=== PATIENT | female | born 1980 | race Two or more races ===

== ENCOUNTER 2016-12-16 12:47 | Emergency (ER) | payer OTHER ==
[~2016-12-16] VITALS: Ht 157.5 cm; Wt 75.5 kg
[~2016-12-16 12:47] MED LIST: [UNRECOGNIZED DRUG - REMARK]
[2016-12-16 12:51] VITALS: Ht 157.5 cm; Wt 75.5 kg
[2016-12-16] MEDS ORDERED: KETOROLAC 30 MG INJ IM STA (13:22)
[2016-12-16] MEDS ORDERED: METOCLOPRAMIDE 10 MG INJ IM ONE (13:30)
[2016-12-16] MEDS ORDERED: DIPHENHYDRAMINE 50 MG INJ IM ONE (13:30)
[2016-12-16] MEDS ORDERED: IBUP-1542 PO (14:16)
[2016-12-16] MEDS ORDERED: SODI126M NASAL (14:17)
--- NOTE | 2016-12-16 14:32 | ERD ---
ER Documentation Chief Complaint Date/Time DATE: 12/16/16 TIME: 14:20 Chief Complaint headache x 1 week, finished antibiotics for sinusitis HPI 36-year-old female complaining of headache 1 week. Headaches mostly in the frontal region. She has photophobia but no vision disturbances. She has a runny nose with clear discharge. Patient stated that she was diagnosed with sinusitis, and just finished taking amoxicillin for it. Denies fever or chills. Denies nausea or vomiting. Denies recent head injuries. Denies balance issues. Denies one-sided numbness or weakness. ROS All systems reviewed and are negative except as per history of present illness. Medications Home Meds Active Scripts Sodium Chloride (Saline Nasal Mist) 126 Ml Mist, 2 SPRAY NASAL Q2H Y for NASAL CONGESTION, #1 BOTTLE Prov:ASHLEY ABREU. PLANT OPERATIONS ENGINEER 12/16/16 Ibuprofen* (Motrin*) 600 Mg Tab, 600 MG PO Q6H Y for PAIN AND OR ELEVATED TEMP, #30 TAB Prov:ASHLEY ABREU. PLANT OPERATIONS ENGINEER 12/16/16 Reported Medications [Diet Pills] No Conflict Check 05/24/10 Allergies Allergies: Coded Allergies: No Known Allergies (Verified Allergy, Mild, 05/24/10) No Known Drug Allergy (Verified Allergy, Mild, 04/18/10) PMhx/Soc History of Surgery: Yes (C SECTION) Anesthesia Reaction: No Hx Neurological Disorder: No Hx Respiratory Disorders: No Hx Cardiac Disorders: No Hx Psychiatric Problems: No Hx Miscellaneous Medical Probl: No Hx Alcohol Use: No Hx Substance Use: No Hx Tobacco Use: Yes Smoking Status: Never smoker Physical Exam Vitals Vital Signs Date Time Temp Pulse Resp B/P Pulse Ox O2 Delivery O2 Flow Rate FiO2 12/16/16 12:51 97.8 77 18 177/90 99 Physical Exam General impression: Well-developed, well-nourished. Alert, oriented, in no acute distress Head: Normocephalic, atraumatic. Eyes: PERRL, EOM normal. Conjunctiva not injected. ENT: Nasal mucosa erythematous and swollen with clear nasal discharge. Oral mucosa and oropharynx are normal. Neck: Supple, nontender. No lymphadenopathy. No nuchal rigidity. Bilateral sternocleidomastoid and upper trapezius muscle spasm noted. Respiration: Normal respiratory effort. Lungs clear to auscultate bilaterally. No wheezes, rales or rhonchi. Cardiovascular: Regular rate and rhythm. No murmurs or extra heart sounds. Neuro: Mental status normal, speech normal. VANSTONE MACHINE OPERATOR II-XII intact. Normal sensation and strength in all 4 extremities. No focal weakness noted. Skin: Normal turgor. No rash or lesions. Psych: Normal mood and affect. Results 24 hrs Current Medications Medications (Trade) Dose Ordered Sig/Estefanía Route PRN Reason Start Time Stop Time Status Last Admin Dose Admin Ketorolac Tromethamine (Toradol) 30 mg ONCE STAT IM 12/16/16 13:22 12/16/16 13:24 DC 12/16/16 13:36 Diphenhydramine HCl (Benadryl) 50 mg ONCE ONCE IM 12/16/16 13:30 12/16/16 13:31 DC 12/16/16 13:36 Metoclopramide HCl (Reglan) 10 mg ONCE ONCE IM 12/16/16 13:30 12/16/16 13:31 DC 12/16/16 13:38 Procedures/MDM Patient was given Toradol 30 mg, Benadryl 50 mg, and Reglan 10 mg IM in the ED. After the injection, patient reports vast improvement of her headache. Likely her headaches combination of sinus headache and tension headache. I doubt intracranial etiology such as intracranial hemorrhage, brain tumor, stroke , or cerebral artery dissection. Patient appears well, stable for discharge and outpatient management. Patient advised to apply heating pad and increase her fluid intake. Medical decision making shared with patient and family. Education provided to patient and family. Patient and family expressed understanding of the plan. Medications on discharge: Ibuprofen. Follow-up: Primary care provider in 2-3 days or return to ED if worse. Departure Diagnosis: Primary Impression: Headache Headache type: tension-type Headache chronicity pattern: acute headache Intractability: not intractable Qualified Code: G44.209 - Acute non intractable tension-type headache Condition: Good Patient Instructions: Self-Care for Headaches Referrals: CATALINA MEHTA (PCP) Additional Instructions: Llame al doctor MAANA y charlene jessica ANDREW PARA DENTRO DE 2-3 RIDDLE.Dgale a la secretaria que nosotros le instruimos hacer esta andrew.Avise o llame si johnson condicin se empeora antes de la andrew. Regresa aqui si peor o no mejor. ASHLEY ABREU NP Dec 16, 2016 14:32
== END 2016-12-16 14:46 | disposition home or self-care (01) ==
LOC: FTE 12:47
DX: G44.209 Tension-type headache, unspecified, not intractable (principal); Z87.891 Personal history of nicotine dependence
CPT/HCPCS: 96372; J1200; J1885; J2765; Z7502

== ENCOUNTER 2017-02-17 13:57 | Day surgery (SDC) | payer OTHER ==
[~2017-02-17] VITALS: Ht 157.5 cm; Wt 72.3 kg
[~2017-02-17 13:57] MED LIST changes: +IBUP-1542 PO; +SODI126M NASAL
[2017-02-17 15:23] VITALS: BP 120/58; PULSE 73; RESP 16; Ht 157.5 cm; Wt 72.3 kg
[2017-02-17 15:43] VITALS: BP 120/68; PULSE 73; RESP 16
== END 2017-02-17 16:58 | disposition home or self-care (01) ==
LOC: SDS 13:57
PROVIDERS: ATTEND Otolaryngology
DX: J33.8 Other polyp of sinus (principal); Z53.9 Procedure and treatment not carried out, unspecified reason
CPT/HCPCS: 84703

== ENCOUNTER 2017-03-03 14:48 | Day surgery (SDC) | payer OTHER ==
[~2017-03-03] VITALS: Ht 157.5 cm; Wt 70.7 kg
[2017-03-03] VITALS (12 sets, daily range): BP systolic 121–136; BP diastolic 75–86; PULSE 64–76; RESP 15–21; Ht 157.5 cm; Wt 70.7 kg
[2017-03-03] MEDS ORDERED: OXYMETAZOLINE 0.05% 15 ML NAS SPRAY NASAL ONE (19:36)
[2017-03-03] MEDS ORDERED: COCAINE 4% 4 ML TOP ONE (19:36)
[2017-03-03] MEDS ORDERED: LIDOCAINE 0.5%/EPI (MDV) 50 ML INJ ONE (19:36)
[2017-03-03] MEDS ORDERED: NEOMYC/POLYMYX/BACIT 30 GM OINT ONE (19:36)
--- NOTE | 2017-03-03 20:09 | HPN ---
Date/Time of Note Date/Time of Note DATE: 03/03/17 TIME: 20:09 Interval H&P Admission Note Pt. seen H&P reviewed: No system changes CHRIS ANNA MD March 03, 2017 20:09
[2017-03-03] MEDS ORDERED: ROCURONIUM 50 MG INJ ONE (20:11)
[2017-03-03] MEDS ORDERED: LIDOCAINE 2% (SDV) 5 ML INJ ONE (20:11)
[2017-03-03] MEDS ORDERED: GLYCOPYRROLATE 0.4 MG INJ ONE ×2 (20:11→20:54)
[2017-03-03] MEDS ORDERED: NEOSTIGMINE 3 MG/3 ML SYRINGE ONE (20:11)
[2017-03-03] MEDS ORDERED: SUCCINYLCHOLINE CHLORIDE 100 MG/5 ML SYG IV ONE (20:11)
[2017-03-03] MEDS ORDERED: MEPERIDINE 100 MG INJ ONE (20:11)
[2017-03-03] MEDS ORDERED: PROPOFOL 20 ML ONE (20:11)
--- NOTE | 2017-03-03 20:20 | OPR ---
Date/Time of Note Date/Time of Note DATE: 03/03/17 TIME: 20:17 Operative Report Procedure Date: March 03, 2017 Preoperative Diagnosis Left chronic sinusitis Postoperative Diagnosis Same Operation Performed Image guided, endoscopic left maxillary, frontal, total ethmoidectomies. Surgeon: CHRIS ANNA MD Anesthesia: general Estimated Blood Loss: 10 - 50 ml's Complications: None Pt Condition Post Procedure: stable Disposition: PACU Indications Chronic left sinusitis. Operative\Procedure Findings Left sinusitis. Procedure Description Description of procedure:The patient was identified in the holding area. We had a discussion to confirm understanding of all indications risks benefits alternatives and postoperative care associated with the operation. The patient signed informed consent was taken to the operating room. The patient was laid supine on the operating room table and anesthesia was provided in the following manner: Geta The face was draped in sterile fashion and the nose was packed with 4% cocaine pledgets. The uncinate process was infiltrated with 0.5 cc of 1 % lidocaine with epinephrine on the left side. 0 endoscopy was performed of all nasal turbinates and meati. This revealed the findings described above. The procedure began on the left side under endoscopic guidance. The microdebrider was used to resect the uncinate process in an inferior to superior fashion until the area of the frontal sinus outflow tract was reached. Frontal sinusotomy: A curved curet was used to remove the bony elements of the Ager Nasi cell. Next, with a 45 camera, the frontal sinus outflow tract was explored and any abnormal mucosa was resected. Care was taken not to cause too much mucosal disruption in this area in order to avoid scarring and stenosis. Balloon dilation of the outflow tract was performed. The tract was patent without polyp or obstructive pathology. Maxillary antrostomy: Once the frontal sinus was addressed, the maxillary sinus ostium was identified and entered with the microdebrider. It was widened anteriorly and inferiorly to complete the maxillary antrostomy. No intrasinus mass or polyp was seen. Ethmoidectomy: Next, the zero degree endoscope was again used to visualize the middle meatus. Anterior and posterior ethmoid air cells were resected in an inferior to superior fashion sparing the lamina papyracea and the skull base. All excess mucosa and polypoid tissue were removed with an upbiting forceps. At this point, all bony fragments were removed and a large Nasopore was placed into the ethmoidectomy defect. The patient was awakened, extubated and taken to the PACU in stable condition. Complications: None. CHRIS ANNA MD March 03, 2017 20:20
[2017-03-03] MEDS ORDERED: METOCLOPRAMIDE 10 MG INJ ONE (20:31)
[2017-03-03] MEDS ORDERED: ONDANSETRON 4 MG INJ ONE (20:31)
[2017-03-03] MEDS ORDERED: CEFAZOLIN 1 GM INJ ONE (20:31)
[2017-03-03] MEDS ORDERED: LABETALOL HCL 20MG INJ ONE (20:32)
[2017-03-03] MEDS ORDERED: CLINDAMYCIN 900 MG/D5W (PMX) 50 ML IVPB ONE (20:46)
[2017-03-03] MEDS ORDERED: MEPERIDINE 25 MG INJ IV PRN (21:00)
[2017-03-03] MEDS ORDERED: FENTAnyl 50 MCG/ML VIAL IV PRN ×2 (21:00)
[2017-03-03] MEDS ORDERED: METOCLOPRAMIDE 10 MG INJ IV PRN (21:00)
[2017-03-03] MEDS ORDERED: ONDANSETRON 4 MG INJ IV PRN (21:00)
[2017-03-03] MEDS ORDERED: morphine (1 MG/ML) 10ML SYRINGE IV PRN ×2 (21:00)
[2017-03-03] MEDS ORDERED: MIDAZOLAM 1 MG/ML 2 ML INJ IV PRN (21:00)
[2017-03-03] MEDS ORDERED: HYDROmorphONE (0.2 MG/ML) 10ML SYG IV PRN ×2 (21:00)
[2017-03-03] MEDS ORDERED: DIPHENHYDRAMINE 50 MG INJ IV PRN (21:00)
[2017-03-03] MEDS ORDERED: HYDROCODONE/APAP (5/325) TAB PO ONE (22:00)
== END 2017-03-03 22:21 | disposition home or self-care (01) ==
LOC: SDS 14:48
PROVIDERS: ATTEND Otolaryngology
DX: J32.9 Chronic sinusitis, unspecified (principal)
CPT/HCPCS: 31255; 31256; 31276; J0690; J2175; J2405; J2710; J2765; J7999; Z7512; Z7610

== ENCOUNTER 2017-06-28 18:17 | Emergency (ER) | payer OTHER ==
[~2017-06-28] VITALS: Ht 157.5 cm; Wt 73.0 kg
[2017-06-28 18:24] VITALS: Ht 157.5 cm; Wt 73.0 kg
[2017-06-28] MEDS ORDERED: KETOROLAC 60 MG INJ IM STA (19:40)
--- NOTE | 2017-06-28 20:13 | ERD ---
ER Documentation Chief Complaint Date/Time DATE: 06/28/17 TIME: 20:05 Chief Complaint Sinus pain for 30 minutes today abcd intact, nad HPI 37-year-old female presents in emergency department for complaints of left facial sinus pain started today, patient has had this issue before, history of chronic sinusitis, he had a history of surgery on the in the facial sinuses, patient complaining of pain again him a throbbing pain, 8/10 scale, is worse upon touching the area. Patient feels congestion on the left. Patient took him oxacillin at home which she had before with mild relief. ROS All systems reviewed and are negative except as per history of present illness. Medications Home Meds Active Scripts Levofloxacin* (Levaquin*) 750 Mg Tablet, 750 MG PO DAILY, #5 TAB Prov:STEVNE RUVALCABA NP 06/28/17 Clindamycin Hcl* (Clindamycin Hcl*) 300 Mg Capsule, 300 MG PO TID for 10 Days, CAP Prov:STEVEN RUVALCABA NP 06/28/17 Fluticasone Propionate (Flonase Allergy Relief) 9.9 Ml [place].susp, 1 SPRAY NASAL BID, #1 BOTTLE TO EACH NOSTRIL Prov:STEVEN RUVALCABA NP 06/28/17 Cetirizine Hcl* (Zyrtec*) 10 Mg Capsule, 10 MG PO DAILY, #30 TAB.CHEW Prov:STEVEN RUVALCABA NP 06/28/17 Acetaminophen* (Tylophen*) 500 Mg Capsule, 1 CAP PO Q6H Y for PAIN AND OR ELEVATED TEMP, #20 CAP Prov:STEVEN RUVALCABA NP 06/28/17 Ibuprofen* (Motrin*) 600 Mg Tab, 600 MG PO Q6H Y for PAIN AND OR ELEVATED TEMP, #30 TAB Prov:STEVEN RUVALCABA NP 06/28/17 Allergies Allergies: Coded Allergies: No Known Allergies (Verified Allergy, Mild, 03/03/17) No Known Drug Allergy (Verified Allergy, Mild, 03/03/17) PMhx/Soc Medical and Surgical Hx: pt denies Medical Hx, pt denies Surgical Hx History of Surgery: Yes (CS X2n sinus surgery) Anesthesia Reaction: No Hx Neurological Disorder: No Hx Respiratory Disorders: No Hx Cardiac Disorders: No Hx Psychiatric Problems: No Hx Miscellaneous Medical Probl: No Hx Alcohol Use: No Hx Substance Use: No Hx Tobacco Use: No Smoking Status: Never smoker FmHx Family History: No coronary disease, No diabetes, No other Physical Exam Vitals Vital Signs Date Time Temp Pulse Resp B/P Pulse Ox O2 Delivery O2 Flow Rate FiO2 06/28/17 18:24 98.3 69 16 147/74 99 Physical Exam GENERAL: The patient is well developed and appropriate for usual state of health, in no apparent distress. and exam HEENT: Atraumatic. Ears: Normal tympanic membrane, no erythema or bulging. No ear canal swelling. No ear discharge. Nose: normal nasal turbinates, Normal nasal discharge. Throat: oropharynx clear. No tonsillar swelling or tonsillar exudates. No lymphadenopathy. Tenderness on palpation on the left maxillary sinus. CHEST: Clear to auscultation bilaterally. There are no rales, wheezes or rhonchi. HEART: Regular rate and rhythm. No murmurs, clicks, rubs or gallops. No S3 or S4. ABDOMEN: Soft, nontender and nondistended. Good bowel sounds. No rebound or guarding. No gross peritonitis. No gross organomegaly or masses. No Parnell sign or McBurney point tenderness. BACK: No midline or flank tenderness. EXTREMITIES: Equal pulses bilaterally. There is no peripheral clubbing, cyanosis or edema. No focal swelling or erythema. Full range of motion. Grossly neurovascularly intact. NEURO: Alert and oriented. Cranial nerves 2-12 intact. Motor strength in all 4 extremities with 5/5 strength. Sensation grossly intact. Normal speech and gait. SKIN: There is no apparent rash or petechia. The skin is warm and dry. HEMATOLOGIC AND LYMPHATIC: There is no evidence of excessive bruising or lymphedema. No gross cervical, axillary, or inguinal lymphadenopathy. Results 24 hrs Current Medications Medications (Trade) Dose Ordered Sig/Estefanía Route PRN Reason Start Time Stop Time Status Last Admin Dose Admin Ketorolac Tromethamine (Toradol) 60 mg ONCE STAT IM 06/28/17 19:40 06/28/17 19:41 DC 06/28/17 20:15 Patient was given medication for pain here in emergency department, after treatment, patient verbalized feeling much better. Patient's pain is improved. Procedures/MDM Medical decision making: Patient symptoms was likely consistent with left sinusitis, maxillary sinusitis, no symptoms of any sepsis at this time, patient appears well and is hemodynamically stable. No symptoms of any abscess. No symptoms of any dental abscess. Patient was given for Levaquin, ibuprofen, Flonase, Zyrtec, is advised to follow-up with primary care doctor in 2-3 days for reevaluation symptoms. Patient is advised to return to emergency department for any worsening symptoms. Disposition: Home. Stable. Departure Diagnosis: Primary Impression: Left maxillary sinusitis Condition: Stable Patient Instructions: Sinusitis, STEVEN Mauro NP Jun 28, 2017 20:13
[2017-06-28] MEDS ORDERED: CETI10CA PO (20:15)
[2017-06-28] MEDS ORDERED: FLUT9.9S NASAL (20:15)
[2017-06-28] MEDS ORDERED: IBUP-1542 PO (20:15)
[2017-06-28] MEDS ORDERED: CLIN-73 PO (20:15)
[2017-06-28] MEDS ORDERED: LEVO750T25 PO (20:15)
[2017-06-28] MEDS ORDERED: ACET500C5 PO (20:15)
[2017-06-28 21:14] VITALS: BP 125/73; PULSE 55; RESP 16
== END 2017-06-28 21:16 | disposition home or self-care (01) ==
LOC: FTE 18:17
DX: J01.00 Acute maxillary sinusitis, unspecified (principal)
CPT/HCPCS: 96372; J1885; Z7502

== ENCOUNTER 2017-08-08 09:38 | Emergency (ER) | payer OTHER ==
[~2017-08-08] VITALS: Ht 160 cm; Wt 71.5 kg
[~2017-08-08 09:38] MED LIST changes: +ACET500C5 PO; +CETI10CA PO; +CLIN-73 PO; +FLUT9.9S NASAL; +LEVO750T25 PO; -SODI126M NASAL; -[UNRECOGNIZED DRUG - REMARK]
[2017-08-08 09:42] VITALS: Ht 160 cm; Wt 71.5 kg
[2017-08-08] MEDS ORDERED: HYDROCODONE/APAP (5/325) TAB PO ONE (10:30)
--- NOTE | 2017-08-08 10:46 | RADRPT ---
PROCEDURE: XR Right ring finger CLINICAL INDICATION: Pain, trauma TECHNIQUE: AP, oblique, and lateral radiographs were submitted. COMPARISON: None FINDINGS: Osseous structures: appear well mineralized and intact with no fracture or destructive process iden tified. Joint spaces: are well maintained, with no significant spurring, erosion or joint effusion evident. Soft tissues: appear unremarkable. IMPRESSION: Unremarkable right ring finger. Physician Nohelia Date Time Electronically viewed and signed by Physician Nohelia on 08/08/2017 10:45 RH/
[2017-08-08] MEDS ORDERED: IBUP-1542 PO (11:01)
--- NOTE | 2017-08-08 11:55 | ERD ---
ER Documentation Chief Complaint Chief Complaint RT 4TH FINGER PAIN SLAMMED IN DOOR HPI 37-year-old female complaining of right fourth finger pain since yesterday. She accidentally slammed the door onto her finger. She reports pain is throbbing, and getting worse. Denies any other injuries. ROS All systems reviewed and are negative except as per history of present illness. Medications Home Meds Active Scripts Ibuprofen* (Motrin*) 600 Mg Tab, 600 MG PO Q6H Y for PAIN AND OR ELEVATED TEMP, #30 TAB Prov:ASHLEY ABREU NP 08/08/17 Levofloxacin* (Levaquin*) 750 Mg Tablet, 750 MG PO DAILY, #5 TAB Prov:STEVEN RUVALCABA NP 06/28/17 Clindamycin Hcl* (Clindamycin Hcl*) 300 Mg Capsule, 300 MG PO TID for 10 Days, CAP Prov:STEVEN RUVALCABA NP 06/28/17 Fluticasone Propionate (Flonase Allergy Relief) 9.9 Ml [place].susp, 1 SPRAY NASAL BID, #1 BOTTLE TO EACH NOSTRIL Prov:STEVEN RUVALCABA NP 06/28/17 Cetirizine Hcl* (Zyrtec*) 10 Mg Capsule, 10 MG PO DAILY, #30 TAB.CHEW Prov:STEVEN RUVALCABA NP 06/28/17 Acetaminophen* (Tylophen*) 500 Mg Capsule, 1 CAP PO Q6H Y for PAIN AND OR ELEVATED TEMP, #20 CAP Prov:STEVEN RUVALCABA NP 06/28/17 Ibuprofen* (Motrin*) 600 Mg Tab, 600 MG PO Q6H Y for PAIN AND OR ELEVATED TEMP, #30 TAB Prov:STEVEN RUVALACBA NP 06/28/17 Allergies Allergies: Coded Allergies: No Known Allergies (Verified Allergy, Mild, 03/03/17) No Known Drug Allergy (Verified Allergy, Mild, 03/03/17) PMhx/Soc History of Surgery: Yes (CS X2n sinus surgery) Anesthesia Reaction: No Hx Neurological Disorder: No Hx Respiratory Disorders: No Hx Cardiac Disorders: No Hx Psychiatric Problems: No Hx Miscellaneous Medical Probl: No Hx Alcohol Use: No Hx Substance Use: No Hx Tobacco Use: No Smoking Status: Never smoker Physical Exam Vitals Vital Signs Date Time Temp Pulse Resp B/P Pulse Ox O2 Delivery O2 Flow Rate FiO2 08/08/17 09:42 98.1 74 18 162/88 99 Physical Exam General: Well-developed, well-nourished, conscious and coherent, in no distress Skin: Warm and dry without rash, good texture and turgor Head: Normocephalic without evidence of trauma Eyes: Sclera and conjunctivae normal; pupils equal, round, and reactive to light; extraocular movements are intact Chest: Normal AP diameter. Good expansion without retractions. Nontender. Lungs are clear to auscultate bilaterally with good tidal volume Heart: Regular rate and rhythm. No murmur, rub, or gallops heard Extremities: Subungual hematoma on the right fourth finger. Patient had limited range of motion of the right fourth finger due to pain. Full range of motion otherwise. Good strength bilaterally. No clubbing, cyanosis, or edema. Peripheral pulses are intact. Sensation intact Neuro: Alert and oriented 4, GCS 15. Cranial nerves grossly intact. Motor and sensory exams nonfocal. Moves all extremities. Speech clear. Gait normal Results 24 hrs Current Medications Medications (Trade) Dose Ordered Sig/Estefanía Route PRN Reason Start Time Stop Time Status Last Admin Dose Admin Acetaminophen/ Hydrocodone Bitart ([place] (5/325)) 1 tab ONCE ONCE PO 08/08/17 10:30 08/08/17 10:31 DC 08/08/17 10:29 PROCEDURE: XR Right ring finger CLINICAL INDICATION: Pain, trauma TECHNIQUE: AP, oblique, and lateral radiographs were submitted. COMPARISON: None FINDINGS: Osseous structures: appear well mineralized and intact with no fracture or destructive process identified. Joint spaces: are well maintained, with no significant spurring, erosion or joint effusion evident. Soft tissues: appear unremarkable. IMPRESSION: Unremarkable right ring finger. Physician Nohelia Date Time Electronically viewed and signed by Physician Nohelia on 08/08/2017 10:45 RH/ CC: ASHLEY ABREU SEARCH STRATEGIST Procedures/MDM Procedure note: Nail trephination Verbal consent obtained from the patient for the procedure. Small holes pierced through the affected nail using cauterizing pen. Small amount of blood released from the nail. Patient reports pain relief. The affected finger was reexamined after the procedure. Patient showed full active range of motion. X-ray of the right fourth finger also show no fractures dislocations. The area of injury was immobilized with a metal finger splint. Patient was noted to be comfortable and neurovascularly intact both before and after the immobilization. She was given [place] p.o. in the ED for pain relief. Patient appears well, stable for discharge and outpatient management. Medical decision making shared with patient and family. Education provided to patient and family. Patient and family expressed understanding of the plan. Medications on discharge: Ibuprofen. Follow-up: Primary care provider in 2-3 days or return to ED if worse. Disclaimer: Inadvertent spelling and grammatical errors are likely due to EHR/ dictation software use and do not reflect on the overall quality of patient care. Also, please note that the electronic time recorded on this note does not necessarily reflect the actual time of the patient encounter. Departure Diagnosis: Primary Impression: Subungual hematoma Condition: Stable Patient Instructions: Subungual Hematoma Additional Instructions: Llame al doctor MAANA y charlene jessica ANDREW PARA DENTRO DE 2-3 RIDDLE.Dgale a la secretaria que nosotros le instruimos hacer esta andrew.Avise o llame si johnson condicin se empeora antes de la andrew. Regresa aqui si peor o no mejor. ASHLEY ABREU NP Aug 08, 2017 11:55
== END 2017-08-08 11:38 | disposition home or self-care (01) ==
LOC: FTE 09:38
DX: S60.141A Contusion of right ring finger with damage to nail, initial encounter (principal); W23.0XXA Caught, crushed, jammed, or pinched between moving objects, initial encounter; Y92.9 Unspecified place or not applicable
CPT/HCPCS: 11740; 73140; Z7502; Z7610

== ENCOUNTER 2017-08-30 18:56 | Emergency (ER) | payer OTHER ==
[~2017-08-30] VITALS: Ht 157.5 cm; Wt 72.4 kg
[2017-08-30 18:59] VITALS: Ht 157.5 cm; Wt 72.4 kg
--- NOTE | 2017-08-30 19:33 | ERD ---
ER Documentation Chief Complaint Chief Complaint pain left side of face since yesterday HPI 37-year-old female presents here in emergency department for complaints of left facial pain that started yesterday. Patient describes the pain as sharp pain,6/ 10, it radiates from the left cheek area to the other parts of the face on the left side. Patient has history of sinus surgery done last February, 6 months ago, started to have the pain before, has been having it on and off, started again yesterday. Patient took Motrin for pain with mild relief. ROS All systems reviewed and are negative except as per history of present illness. Medications Home Meds Active Scripts Ibuprofen* (Motrin*) 600 Mg Tab, 600 MG PO Q6H Y for PAIN AND OR ELEVATED TEMP, #30 TAB Prov:ASHLEY ABREU NP 08/08/17 Levofloxacin* (Levaquin*) 750 Mg Tablet, 750 MG PO DAILY, #5 TAB Prov:STEVEN RUVALCABA NP 06/28/17 Clindamycin Hcl* (Clindamycin Hcl*) 300 Mg Capsule, 300 MG PO TID for 10 Days, CAP Prov:STEVEN RUVALCABA NP 06/28/17 Fluticasone Propionate (Flonase Allergy Relief) 9.9 Ml [place].susp, 1 SPRAY NASAL BID, #1 BOTTLE TO EACH NOSTRIL Prov:STEVEN RUVALCABA NP 06/28/17 Cetirizine Hcl* (Zyrtec*) 10 Mg Capsule, 10 MG PO DAILY, #30 TAB.CHEW Prov:STEVEN RUVALCABA NP 06/28/17 Acetaminophen* (Tylophen*) 500 Mg Capsule, 1 CAP PO Q6H Y for PAIN AND OR ELEVATED TEMP, #20 CAP Prov:STEVEN RUVALCABA NP 06/28/17 Ibuprofen* (Motrin*) 600 Mg Tab, 600 MG PO Q6H Y for PAIN AND OR ELEVATED TEMP, #30 TAB Prov:STEVEN RUVALCABA NP 06/28/17 Allergies Allergies: Coded Allergies: No Known Allergies (Verified Allergy, Mild, 03/03/17) No Known Drug Allergy (Verified Allergy, Mild, 03/03/17) PMhx/Soc History of Surgery: Yes (CS X2, sinus surgery FEBRUARY 2017) Anesthesia Reaction: No Hx Neurological Disorder: No Hx Respiratory Disorders: No Hx Cardiac Disorders: No Hx Psychiatric Problems: No Hx Miscellaneous Medical Probl: No Hx Alcohol Use: No Hx Substance Use: No Hx Tobacco Use: No Smoking Status: Never smoker FmHx Family History: No coronary disease, No diabetes, No other Physical Exam Vitals Vital Signs Date Time Temp Pulse Resp B/P Pulse Ox O2 Delivery O2 Flow Rate FiO2 08/30/17 18:59 97.4 72 20 137/82 100 Physical Exam GENERAL: The patient is well developed and appropriate for usual state of health, in no apparent distress. HEENT: Atraumatic. Ears: Normal tympanic membrane, no erythema or bulging. No ear canal swelling. No ear discharge. Nose: normal nasal turbinates, no erythema or swelling. Normal nasal discharge. Throat: oropharynx clear. No tonsillar swelling or tonsillar exudates. No lymphadenopathy. No sinus tenderness noted, no facial swelling noted, no redness noted. CHEST: Clear to auscultation bilaterally. There are no rales, wheezes or rhonchi. HEART: Regular rate and rhythm. No murmurs, clicks, rubs or gallops. No S3 or S4. ABDOMEN: Soft, nontender and nondistended. Good bowel sounds. No rebound or guarding. No gross peritonitis. No gross organomegaly or masses. No Parnell sign or McBurney point tenderness. BACK: No midline or flank tenderness. EXTREMITIES: Equal pulses bilaterally. There is no peripheral clubbing, cyanosis or edema. No focal swelling or erythema. Full range of motion. Grossly neurovascularly intact. NEURO: Alert and oriented. Cranial nerves 2-12 intact. Motor strength in all 4 extremities with 5/5 strength. Sensation grossly intact. Normal speech and gait. SKIN: There is no apparent rash or petechia. The skin is warm and dry. HEMATOLOGIC AND LYMPHATIC: There is no evidence of excessive bruising or lymphedema. No gross cervical, axillary, or inguinal lymphadenopathy. Results 24 hrs PROCEDURE: CT Facial Bones. CLINICAL INDICATION: Left facial pain. TECHNIQUE: Helical axial sections were obtained through the facial bones without intravenous contrast enhancement. Sagittal and coronal reformatted images were accomplished using the data from the axial images. Total exam DLP is 578.94 mGy-cm. CTDIvol is 29.55 mGy. One or more of the following dose reduction techniques were used: Automated exposure control, adjustment of the mA and/or kV according to patient size, use of iterative reconstruction technique. DICOM images are available. COMPARISON: No prior study is available for comparison. FINDINGS: Paranasal sinuses are normal. There is no fluid, mass, or mucosal thickening. There is no bone abnormality. There is no fracture. There is no lytic or blastic lesion. The orbits are normal. The globes are intact. The extraocular muscles and optic nerves are normal. The nasal septum is midline. The ostiomeatal complexes are normal. The turbinates are unremarkable. The mandible and maxilla are intact. The zygomatic arches and pterygoid plates are normal. IMPRESSION: 1. Normal images of the facial bones. RPTAT: QQ .Ronaldo Salazar MD, MD Date Time Electronically viewed and signed by .Ronaldo Salazar MD, MD on 08/30/2017 21:13 .R/ CC: STEVEN RUVALCABA NP Procedures/MDM Medical decision making: Patient's facial pain nonspecific at this time, can be nerve pain, can be trigeminal neuralgia. No symptoms of any abscess. No symptoms of any infection. No symptoms of any sepsis at this time. Patient appears well and hemodynamically stable. No fractures noted. Prescription was given for tramadol for severe pain, is advised to follow-up with primary care doctor 1-2 days for reevaluation of symptoms, see ENT specialist. Patient is advised to return to emergency department for any worsening symptoms. Disposition: Home. Stable Departure Diagnosis: Primary Impression: Facial pain Condition: Stable Patient Instructions: Pain Management STEVEN RUVALCABA NP Aug 30, 2017 19:33
--- NOTE | 2017-08-30 21:13 | RADRPT ---
PROCEDURE: CT Facial Bones. CLINICAL INDICATION: Left facial pain. TECHNIQUE: Helical axial sections were obtained through the facial bones without intravenous contr ast enhancement. Sagittal and coronal reformatted images were accomplished using the data from the axial images. Total exam DLP is 578.94 mGy-cm. CTDIvol is 29.55 mGy. One or more of the followin g dose reduction techniques were used: Automated exposure control, adjustment of the mA and/or kV ac cording to patient size, use of iterative reconstruction technique. DICOM images are available. COMPARISON: No prior study is available for comparison. FINDINGS: Paranasal sinuses are normal. There is no fluid, mass, or mucosal thickening. There is no bone abnormality. There is no fracture. There is no lytic or blastic lesion. The orbits are normal. The globes are intact. The extraocular muscles and optic nerves are normal. The nasal septum is midline. The ostiomeatal complexes are normal. The turbinates are unremarkable. The mandible and maxilla are intact. The zygomatic arches and pterygoid plates are normal. IMPRESSION: 1. Normal images of the facial bones. RPTAT: QQ .Ronaldo Salazar MD, MD Date Time Electronically viewed and signed by .Ronaldo Salazar MD, on 08/30/2017 21:13 .R/
[2017-08-30] MEDS ORDERED: TRAM50TA2 PO (21:28)
[2017-08-30 21:43] VITALS: BP 156/80; PULSE 67; RESP 16
[2017-08-30] MEDS ORDERED: traMADol 50 MG TAB PO ONE (22:00)
== END 2017-08-30 21:45 | disposition home or self-care (01) ==
LOC: FTE 18:56
DX: R51 Headache (principal)
CPT/HCPCS: 70486; Z7502; Z7610

== ENCOUNTER 2018-04-02 15:48 | Emergency (ER) | END 2018-04-02 17:31 | disposition home or self-care (01) ==